=== PATIENT | female | born 1950 | race Caucasian/White ===

== ENCOUNTER 2016-12-20 05:40 | Day surgery (SDC) | payer MEDICARE, OTHER ==
[2016-12-13 11:05] LABS: HEMATOCRIT 34.3 % (36.0-48.0); HEMOGLOBIN 11.6 g/dL (12.0-16.0)
[2016-12-13 11:20] LABS: BUN (BLOOD UREA NITROGEN) 11 MG/DL (6-23); CHLORIDE, SERUM 105 MMOL/L (96-112); CO2 (CARBON DIOXIDE) 27 MMOL/L (24-34); CREATININE 0.88 MG/DL (0.55-1.02); GFR AFRICAN AMERICAN 79 ML/MIN (>=60); GFR NON AFRICAN AMERICAN 68 ML/MIN (>=60); GLUCOSE, SERUM 90 MG/DL (60-99); SODIUM, SERUM 141 MMOL/L (135-148)
[2016-12-13 11:25] LABS: POTASSIUM, SERUM 3.3 MMOL/L (3.5-5.3)
--- NOTE | ~2016-12-20 | OP ---
Record Of Operation [facility] [address] [place]. 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 PROCEDURES: Microdirect laryngoscopy with injection of bilateral true vocal cords with Prolaryn temporary voice gel. SURGEON: Jasbir Carmona M.D. ANESTHESIA: General. COMPLICATIONS: None. COUNTS: All counts correct following the procedure. ESTIMATED BLOOD LOSS: Minimal. PREOPERATIVE INFORMED CONSENT: We discussed the risks and benefits of the surgery to include, but not limited to bleeding infection, possible swelling, loss of airway and , possible need for reinjection, possible persistent hoarseness despite surgery. She understands the risks and benefits of the surgery and consent is on the chart. PROCEDURE IN DETAIL: The patient was brought to the operating suite and placed on the operating table in the supine position. General endotracheal anesthesia was initiated without incident. The patient's head and neck were cleaned, prepped, and draped in the usual sterile fashion. Following this, a bite guard was placed on the upper teeth and a Dedo laryngoscope was carefully inserted in the oral cavity, and advanced into the supraglottic larynx just above the vocal cords. The patient was suspended from the Pitcher stand using the suspension apparatus. Following this, a microscope was brought on the field and then using the Prolaryn injection needle under the direction of the microscope, 0.25 mL of material was injected lateral to the middle third of the vocal cord bilaterally achieving excellent medialization of the middle third of the vocal cord which was preinjection, and the pictures were taken showing a significant bowing of the vocal folds. The patient was then taken out of the suspension. Dedo laryngoscope was removed. The teeth were noted to be in preop condition. The patient was awakened from anesthesia, and taken to the recovery room in stable condition. Record Of Operation [facility] [address] [place]. [address] NAME: DAGOBERTO RAJPUT : 48 STATUS : REG [facility]#: [id number] AGE: 66 ADM/REG DATE : 12/20/16 MR#: [id number] REPORT SERV DATE: 12/20/16 DICTATED BY: JASBIR CARMONA DATE: 12/20/16 REPORT STATUS : Draft TRANSCRIBED BY: ENRICO DATE: 12/20/16 JOHN/ENRICO Jasbir Carmona M.D. / [id number] CC: Jaswinder Puckett M.D.
[~2016-12-20 05:40] MED LIST: ASAB PO; BEN25 PO; COZ25 PO; EFFIENT10 PO; IMDUR30 PO; METOPROLOL; RAN500 PO; WELLSR150 PO; ZYRTEC ALLGY10 MG PO
== END 2016-12-20 15:59 | disposition home or self-care (01) ==
LOC: SDC 05:40
PROVIDERS: Otolaryngology
PROC: 3E0F8GC Introduction of Other Therapeutic Substance into Respiratory Tract, Via Natural or Artificial Opening Endoscopic (ICD-10-PCS; principal; 2016-12-20 07:15)
DX: J38.7 Other diseases of larynx (principal); R49.0 Dysphonia; I25.2 Old myocardial infarction; I25.10 Atherosclerotic heart disease of native coronary artery without angina pectoris; Z95.5 Presence of coronary angioplasty implant and graft; I10 Essential (primary) hypertension; F32.9 Major depressive disorder, single episode, unspecified; Z88.0 Allergy status to penicillin; Z88.2 Allergy status to sulfonamides; Z82.5 Family history of asthma and other chronic lower respiratory diseases; Z82.49 Family history of ischemic heart disease and other diseases of the circulatory system
CPT/HCPCS: 80048; 85014; 85018; 93005; A9270-GY; C1878; J0330; J2270; J2405; J2550; J2710; J3010